=== PATIENT | female | born 2000 | race Caucasian/White ===

== ENCOUNTER 2024-10-25 23:21 | Inpatient (IN) | payer MEDICAID ==
[2024-10-25] MEDS ORDERED: HALOPERIDOL LACTATE 5 MG/ML 1 ML VIAL IM PRN (23:48)
[2024-10-25] MEDS ORDERED: MAGNESIUM HYDROXIDE 2,400 MG/30 ML CUP PO PRN (23:48)
[2024-10-26] MEDS: ACETAMINOPHEN TAB 325 MG TAB PO PRN (03:54)
[2024-10-26] MEDS: LORazepam 1 MG TAB PO PRN (03:54)
[2024-10-26 04:09] LABS: Bilirubin,Urine Negative (Negative); Blood,Urine Negative (Negative); Color,Urine Colorless; Glucose,Urine (UA) Negative (Negative); Ketones,Urine Negative (Negative); Leukocyte Esterase,Urine Negative (Negative); Nitrite,Urine Negative (Negative); PH, Urine 6.0 (5.0-8.0); Protein,Urine Negative (Negative); Specific Gravity,Urine 1.003 (1.001-1.035); Urobilinogen,Urine <2.0 mg/dL (<2.0)
[2024-10-26] MEDS: IBUPROFEN 600 MG TAB PO PRN (06:07)
--- NOTE | 2024-10-26 06:32 | P.HPIM ---
History of Present Illness H&P Date: 10/26/24 Chief Complaint: Suicidal ideation This is a 24-year-old female patient with past medical history of schizophrenia, insomnia, bipolar disorder, alcohol use disorder and polysubstance use who was admitted to the behavioral unit due to suicidal ideation. Patient reported that she intentionally took a group of medications from the street including heroin, Suboxone, methamphetamine, etc . Patient reports that she was taken by the meal attendant with reports having a seizure inside the car and she ended up bumping the back of her head . Patient complaining of head pain with reports of a small bump. She does report having alcohol withdrawal symptoms including seizure in the past. Past medical history : Schizophrenia, bipolar disorder, insomnia, alcohol use disorder, polysubstance use Past surgical history : none Social history : Daily tobacco use of 2 packs/day, patient drinks around a pint of tequila per day, frequent use of heroin and meth PE : General: nontoxic, no distress, appears at stated age Derm: warm, dry, intact Head: atraumatic, normocephalic, symmetric . small bump at the posterior scalp (right side) with tenderness upon palpation Eyes: EOMI, anicteric sclera Mouth: no lip lesion, mucus membranes moist Cardiovascular: S1 S2 reg, no murmur, rubs, or gallops Lungs: CTA bilateral, no rales, no accessory muscle use Abdominal: soft, non-tender to palpataion, no appreciable organomegaly Extremities: no gross muscle atrophy, no edema, no contractures Neuro: Alert, Oriented, CNII-XII grossly intact, gait normal Psych: well appearing, appropriate affect II: Pupils equal and reactive, no RAPD, normal visual field and fundus III, IV, : EOM intact, no gaze preference or deviation V: normal VII: no facial asymmetry VIII: normal hearing to speech Assessment and plan : - Alcohol use disorder with reports of alcohol withdrawal symptoms: Continue with CIWA protocol Ativan as needed for seizure Thiamine and folic acid daily Counseling was done -Polysubstance use including heroin and meth -Schizophrenia/bipolar disorder with suicidal ideation: Managed by behavioral unit -Scalp hematoma versus local soft tissue contusion or edema due to a minor injury : Continue to monitor for now and no need for head CT Tylenol as needed for pain If head pain symptoms are worsen, consider head CT scan without contrast Thank you for the consult Time spent : 35 min Past Medical History Past Medical History: Asthma Additional Past Medical History / Comment(s): Pt states she is "Pre-Diabetic" & has Anemia History of Any Multi-Drug Resistant Organisms: None Reported Additional Past Surgical History / Comment(s): Pt states prior Ligament repair to R Knee Past Anesthesia/Blood Transfusion Reactions: Unable to Obtain Smoking Status: Current every day smoker Past Alcohol Use History: Heavy Additional Past Alcohol Use History / Comment(s): Pt states she drinks heavily, daily BAT upon arrival less than 10 Past Drug Use History: Heroin, Marijuana Additional Drug Use History / Comment(s): Pt shates she uses Heroin intravenously - Past Family History Father Family Medical History: Diabetes Mellitus Mother Family Medical History: Cancer Medications and Allergies Allergies Allergy/AdvReac Type Severity Reaction Status Date / Time No Known Allergies Allergy Verified 10/25/24 23:47 Physical Exam Vitals: Vital Signs Temp Pulse Resp BP 10/26/24 03:25 98 F 92 16 124/72 Intake and Output 10/25/24 10/25/24 10/26/24 14:59 22:59 06:59 Other: Weight 87.5 kg Thrombosis Risk Factor Assmnt - Choose All That Apply Each Factor Represents 1 point: Obesity (BMI >25) Other Risk Factors: No Other congenital or acquired thrombophilia - If yes, enter type in comment: No Thrombosis Risk Factor Assessment Total Risk Factor Score: 1 Thrombosis Risk Factor Assessment Level: Low Risk
[2024-10-26] MEDS: FOLIC ACID 1 MG TAB PO SCH (07:59)
[2024-10-26] MEDS: NICOTINE 14MG/24HR PATCH TRANSDERM SCH (07:59)
[2024-10-26] MEDS: THIAMINE 100 MG TAB PO SCH (07:59)
[2024-10-26 08:55] LABS: Basophils # (A) 0.03 10*3/uL (0.00-0.10); Basophils % (A) 0.4 %; Eosinophils # (A) 0.09 10*3/uL (0.04-0.35); Eosinophils % (A) 1.3 %; HCT 38.2 % (37.2-46.3); HGB 12.7 g/dL (12.0-15.0); Lymphocytes # (A) 2.12 10*3/uL (0.90-5.00); Lymphocytes % (A) 29.8 %; MCH 29.8 pg (27.0-32.0); MCHC 33.2 g/dL (32.0-37.0); MCV 89.7 fL (80.0-97.0); Monocytes # (A) 0.73 10*3/uL (0.20-1.00); Monocytes % (A) 10.3 %; Neutrophils # (A) 4.12 10*3/uL (1.80-7.70); Neutrophils % (A) 57.8 %; Platelet Count 234 10*3/uL (140-440); RBC 4.26 10*6/uL (4.10-5.20); RDW 13.4 % (11.5-14.5); WBC 7.12 10*3/uL (4.50-10.00)
[2024-10-26 09:11] LABS: ALT 17 U/L (4-34); AST 21 U/L (14-36); African American GFR (CKD) >90 (>60 ml/min/1.73 sqM); Albumin 4.4 g/dL (3.5-5.0); Alkaline Phosphatase 68 U/L (38-126); Anion Gap 9 mmol/L; Blood Urea Nitrogen 11 mg/dL (7-17); Calcium 9.3 mg/dL (8.4-10.2); Carbon Dioxide 23 mmol/L (22-30); Chloride 105 mmol/L (98-107); Glucose 103 mg/dL (74-99); Non-African American GFR(CKD) >90 (>60 ml/min/1.73 sqM); Potassium 4.1 mmol/L (3.5-5.1); Sodium 137 mmol/L (137-145); Total Protein 7.1 g/dL (6.3-8.2)
[2024-10-26 09:39] LABS: Urine Alcohol Negative (Negative); Urine Barbiturate Negative (Negative)
--- NOTE | 2024-10-26 10:35 | P.HP ---
Psychiatric H&P - . H&P Date: 10/26/24 History & Physical: Allergies Allergy/AdvReac Type Severity Reaction Status Date / Time No Known Allergies Allergy Verified 10/25/24 23:47 Vital Signs Temp 97.8 F 10/26/24 09:00 Pulse 81 10/26/24 09:00 Resp 16 10/26/24 09:00 BP 110/72 10/26/24 09:00 Pulse Ox 100 10/26/24 09:00 FiO2 Intake & Output 10/25/24 10/26/24 10/26/24 18:59 06:59 18:59 Weight 87.5 kg Laboratory Last Values WBC 7.12 10*3/uL (4.50-10.00) 10/26/24 08:13 RBC 4.26 10*6/uL (4.10-5.20) 10/26/24 08:13 Hgb 12.7 g/dL (12.0-15.0) 10/26/24 08:13 Hct 38.2 % (37.2-46.3) 10/26/24 08:13 MCV 89.7 fL (80.0-97.0) 10/26/24 08:13 MCH 29.8 pg (27.0-32.0) 10/26/24 08:13 MCHC 33.2 g/dL (32.0-37.0) 10/26/24 08:13 Plt Count 234 10*3/uL (140-440) 10/26/24 08:13 MPV 10.1 fL (9.5-12.2) 10/26/24 08:13 Immature Gran % (Auto) 0.4 % 10/26/24 08:13 Neutrophils % 57.8 % 10/26/24 08:13 Lymphocytes % 29.8 % 10/26/24 08:13 Monocytes % 10.3 % 10/26/24 08:13 Eosinophils % 1.3 % 10/26/24 08:13 Basophils % 0.4 % 10/26/24 08:13 Immature Gran # 0.03 10*3/uL (0.00-0.04) 10/26/24 08:13 Neutrophils # 4.12 10*3/uL (1.80-7.70) 10/26/24 08:13 Lymphocytes # 2.12 10*3/uL (0.90-5.00) 10/26/24 08:13 Monocytes # 0.73 10*3/uL (0.20-1.00) 10/26/24 08:13 Eosinophils # 0.09 10*3/uL (0.04-0.35) 10/26/24 08:13 Basophils # 0.03 10*3/uL (0.00-0.10) 10/26/24 08:13 Sodium 137 mmol/L (137-145) 10/26/24 08:13 Potassium 4.1 mmol/L (3.5-5.1) 10/26/24 08:13 Chloride 105 mmol/L (98-107) 10/26/24 08:13 Carbon Dioxide 23 mmol/L (22-30) 10/26/24 08:13 Anion Gap 9 mmol/L 10/26/24 08:13 BUN 11 mg/dL (7-17) 10/26/24 08:13 Creatinine 0.53 mg/dL (0.52-1.04) 10/26/24 08:13 Est GFR (CKD-EPI)AfAm >90 (>60 ml/min/1.73 sqM) 10/26/24 08:13 Est GFR (CKD-EPI)NonAf >90 (>60 ml/min/1.73 sqM) 10/26/24 08:13 Glucose 103 mg/dL (74-99) H 10/26/24 08:13 Calcium 9.3 mg/dL (8.4-10.2) 10/26/24 08:13 Total Bilirubin 0.5 mg/dL (0.2-1.3) 10/26/24 08:13 AST 21 U/L (14-36) 10/26/24 08:13 ALT 17 U/L (4-34) 10/26/24 08:13 Alkaline Phosphatase 68 U/L (38-126) 10/26/24 08:13 Total Protein 7.1 g/dL (6.3-8.2) 10/26/24 08:13 Albumin 4.4 g/dL (3.5-5.0) 10/26/24 08:13 TSH 4.530 mIU/L (0.465-4.680) 10/26/24 08:13 Urine Color Colorless 10/26/24 03:30 Urine Appearance Clear (Clear) 10/26/24 03:30 Urine pH 6.0 (5.0-8.0) 10/26/24 03:30 Ur Specific [place] 1.003 (1.001-1.035) 10/26/24 03:30 Urine Protein Negative (Negative) 10/26/24 03:30 Urine Glucose (UA) Negative (Negative) 10/26/24 03:30 Urine Ketones Negative (Negative) 10/26/24 03:30 Urine Blood Negative (Negative) 10/26/24 03:30 Urine Nitrite Negative (Negative) 10/26/24 03:30 Urine Bilirubin Negative (Negative) 10/26/24 03:30 Urine Urobilinogen <2.0 mg/dL (<2.0) 10/26/24 03:30 Ur Leukocyte Esterase Negative (Negative) 10/26/24 03:30 Urine Opiates Screen Negative (Negative) 10/26/24 03:30 Urine Methadone Screen Negative (Negative) 10/26/24 03:30 Ur Propoxyphene Screen Negative (Negative) 10/26/24 03:30 Urine Barbiturates Negative (Negative) 10/26/24 03:30 Ur Phencyclidine Scrn Negative (Negative) 10/26/24 03:30 Ur Amphetamine Screen Negative (Negative) 10/26/24 03:30 U Benzodiazepines Scrn Negative (Negative) 10/26/24 03:30 Urine Cocaine Screen Negative (Negative) 10/26/24 03:30 U Cannabinoids Screen Positive (Negative) A 10/26/24 03:30 Urine Alcohol Negative (Negative) 10/26/24 03:30 U Creatinine Drug Scrn 27.8 mg/dL (>=20.0) 10/26/24 03:30 10/26/24 10:27 IDENTIFYING DATA: Patient is a 24-year-old female recently moved from [place] to [place] HPI: The patient presented to the hospital reporting suicidal thoughts with a plan and intent. The patient had noted that she had a history of schizophrenia. Most of the interview was concluded from those brief reports. The patient upon entering the room was lying in bed by stated her name she looked up and look at me and turned around and pulled the covers over her head. Again an attempt was made in order to have the patient interview however the patient did not respond. At this point it was concluded that the patient was refusing to interview and subsequent attempts were discontinued at this point. PAST PSYCHIATRIC HISTORY: Per report the patient has a history of Schizophrenia. The patient's current medication regiment is unknown. Patient's hospital history is unknown. The outpatient provider is unknown. Per reports the patient has had multiple suicide attempts in the past. PMH: as per ER note ALLERGIES: as per EMR CHEMICAL DEPENDENCY HISTORY: as per HPI Unable to obtain FAMILY PSYCHIATRIC/SUBSTANCE USE HISTORY: The patient refuses to answer questions. SOCIAL HISTORY: The patient is from [place] per report. MENTAL STATUS EXAM: General Appearance: Patient appears to be her stated age is alert, the patient was uncooperative and refused to speak.. Patient appears to have poor hygiene and grooming. Behavior: Lying in bed refusing to get up Speech: Unable to evaluate Mood/Affect: Patient reports their mood is unable to evaluate, affect is flat and constricted. Suicidality/Homicidality: Unable to evaluate Perceptions: Unable to evaluate Though content/process: Unable to evaluate Memory and concentration: Unable to evaluate Judgment and insight: Poor/Poor STRENGTHS/WEAKNESSES: Unable to evaluate INTELLECT: Unable to evaluate Diagnosis: Depression per report Schizophrenia per report Assessment: 24-year-old female presented to the emergency room voicing suicidal thoughts with a plan and intent. Currently she is refusing to interview so information is limited. Currently the patient's response and past history warrant further hospitalization for evaluation. This is currently the least restrictive level of care at this time. PLAN: -Patient is admitted under involuntary status to MHU for stabilization of psychiatric symptoms and safety. Patient has not signed adult voluntary form and medication consent and is placed in patient's chart. A second certification was completed and along with petition will be filed for court. -Medications : On hold -Ativan and Haldol PRN for agitation/aggression -Patient was informed of the risks, benefits and side effects of the medication and patient verbally consented to taking the medications. Patient signed med consent form and was placed in chart. -Internal Medicine consult to perform medical evaluation and physical. -NRT -nicotine patch -SW on board for discharge planning. Encourage patient to participate in groups to work on coping skills. Will await deferral and court date.
[2024-10-26 13:11] LABS: Cholesterol 144.00 mg/dL (0.00-200.00); HDL Cholesterol 53.80 mg/dL (40.00-60.00); LDL Cholesterol,Calculated 49.4 mg/dL (0.0-131.0); Triglycerides 204.00 mg/dL (0.00-149.00); VLDL Calculation 40.80 mg/dL (5.00-40.00)
[2024-10-26] MEDS: MAG HYDROX/AL HYDROX/SIMETH 355 ML BOTTLE PO PRN (18:15)
[2024-10-27] MEDS: OLANZapine ODT 5 MG TAB PO SCH (11:38)
--- NOTE | 2024-10-27 11:41 | P.PN ---
Progress Note - Text Progress Note Date: 10/27/24 Chief complaint: Suicidal thoughts Interval History: Patient was seen wandering the hallways and was directable and agreeable to speak with manual writer in the office. During the interview a nurse was present the entire interview. Prior to meeting the patient the patient had an outburst and punched the wall and broke a sign. The patient notes that she came to the hospital because she had thoughts of hanging herself. She notes that her sister took the rope away from her. She notes that she has had over 18 suicide attempts in her past and over 20 hospitalizations. She notes that she has dysregulated mood 365 days a year, self harms to alleviate pain, intense anger. Patient has a prior diagnosis of borderline personality disorder. Patient notes that her depression is 8/10 and her anxiety 0/10. She notes that she was not sleeping prior to coming. She notes that her energy, appetite and concentration are normal. She denies any feelings of helplessness, hopelessness or worthlessness. She denies any crying or guilt or shame. She notes today she denies any suicidal or homicidal ideations. She denies any access to guns. She denies any auditory or visual hallucinations. Substance abuse history: Cannabis-positive Coke-positive Meth-positive Opiates-positive The patient plans to go to a rehab facility in [place] that her mother is setting up. Mental Status Exam: General Appearance: The patient presented her stated age however too much make up but dressed appropriately. Behavior: The patient was agitated and guarded during the interview. Speech: Patient's speech is fluent and nonpressured. Mood/Affect: Mood is improving mildly, affect is congruent and constricted. Suicidality/Homicidality: Patient denies having any suicidal or homicidal ideation intent or plan. Perceptions: Patient denies any visual hallucinations and denies any auditory hallucinations Though content/process: There is no evidence of any delusional thought content and thought process is linear and goal-directed. Memory and concentration: AOX3, grossly intact for the purposes of this session Judgment and insight: Improving mildly Diagnosis: Borderline personality disorder Depression per report Schizophrenia per report Opiate use disorder Cannabis use disorder Cocaine use disorder Methamphetamine use disorder Assessment: The patient was willing to talk today she had an outburst because she was not getting the attention that she needed. She does fit criteria for Borderline personality disorder. Additionally she has a history of addiction. Medications will be started we will evaluate the patient's stability at this time current demonstrations of cooperation and stability warrant further hospitalization and this is the least restrictive level of care at this time. PLAN: -Patient is admitted under involuntary status to MHU for stabilization of psychiatric symptoms and safety. Patient has not signed adult voluntary form and medication consent and is placed in patient's chart. A second certification was completed and along with petition will be filed for court. -Medications : Start Zyprexa Zydis 5 mg take 1 tablet by mouth twice daily for mood -Ativan and Haldol PRN for agitation/aggression -Patient was informed of the risks, benefits and side effects of the medication and patient verbally consented to taking the medications. Patient signed med consent form and was placed in chart. -Internal Medicine consult to perform medical evaluation and physical. -NRT -nicotine patch -SW on board for discharge planning. Encourage patient to participate in groups to work on coping skills. Will await deferral and court date.
[2024-10-27] MEDS ORDERED: OLANZapine ODT 10 MG TAB PO SCH (12:00)
[2024-10-28] MEDS ORDERED: OLANZapine ODT 10 MG TAB PO SCH (09:00)
--- NOTE | 2024-10-28 10:51 | P.PN ---
Progress Note - Text Progress Note Date: 10/28/24 Chief complaint: Suicidal thoughts Interval History: The patient presented to the office and presented more calm and cooperative. It was observed in the hallway that she was tearful but she notes that the main reason for this is that she missed breakfast. She would like to be discharged tomorrow and stay with her mother until Tuesday when she will be admitted to the rehab facility. She notes that her mother is already gone through her room and thrown out all of her drugs and will be controlling the money. She notes that she is currently not suicidal or homicidal. She denies any ongoing depression or anxiety. She notes that her sleep, energy, appetite and concentration are normal. She denies any mood swings, auditory hallucinations or visual hallucinations. She notes that the Zyprexa is working well and she feels that it is a good fit. Mental Status Exam: General Appearance: The patient presented her stated age however too much make up but dressed appropriately. Behavior: The patient was agitated and guarded during the interview. Speech: Patient's speech is fluent and nonpressured. Mood/Affect: Mood is improving mildly, affect is congruent and constricted. Suicidality/Homicidality: Patient denies having any suicidal or homicidal ideation intent or plan. Perceptions: Patient denies any visual hallucinations and denies any auditory hallucinations Though content/process: There is no evidence of any delusional thought content and thought process is linear and goal-directed. Memory and concentration: AOX3, grossly intact for the purposes of this session Judgment and insight: Improving mildly Diagnosis: Borderline personality disorder Depression per report Schizophrenia per report Opiate use disorder Cannabis use disorder Cocaine use disorder Methamphetamine use disorder Assessment: Once on the antipsychotics it appears that the patient's mood is stabilizing and it is also felt that the patient will be appropriate for discharge tomorrow. PLAN: -Patient is admitted under involuntary status to MHU for stabilization of psychiatric symptoms and safety. Patient has not signed adult voluntary form and medication consent and is placed in patient's chart. A second certification was completed and along with petition will be filed for court. -Medications : Continue Zyprexa Zydis 5 mg take 1 tablet by mouth twice daily for mood -Ativan and Haldol PRN for agitation/aggression -Patient was informed of the risks, benefits and side effects of the medication and patient verbally consented to taking the medications. Patient signed med consent form and was placed in chart. -Internal Medicine consult to perform medical evaluation and physical. -NRT -nicotine patch -SW on board for discharge planning. Encourage patient to participate in groups to work on coping skills. Will await deferral and court date.
[2024-10-29 08:30] VITALS: BP 124/69; PULSE 101; RESP 18; TEMP 97.6
--- NOTE | 2024-10-29 10:18 | P.DS ---
Providers Date of admission: 10/26/24 03:24 Admission HPI: Admission note was completed by Dr. Rodriguez "The patient presented to the hospital reporting suicidal thoughts with a plan and intent. The patient had noted that she had a history of schizophrenia. Most of the interview was concluded from those brief reports. The patient upon entering the room was lying in bed by stated her name she looked up and look at me and turned around and pulled the covers over her head. Again an attempt was made in order to have the patient interview however the patient did not respond. At this point it was concluded that the patient was refusing to interview and subsequent attempts were discontinued at this point." Hospital course: Upon admission to the unit patient was directable and agreeable to commence treatment and signed adult voluntary form admitted involuntarily on a petition and certificate and a second certificate was completed and faxed to the courts. Patient ended up signing a deferral with the county attorney and agreeing to treatment. Initially upon admission the patient was very resistant and labile. At one point she punched the wall and broke a sign. Patient got along well with other patients on the unit and followed unit protocol. Patient was compliant with the medications and denied any side effects throughout hospital course. Patient was started on Zyprexa Zydis. Patient spoke of her stressors and engaged in therapy both group and individual. Patient was also seen by medical team for history and physical exam. Throughout the course of the hospitalization patient gradually improved with regards to mood, anxiety, sleep and returned back to their baseline level of functioning became more future oriented with improved insight and judgment. On the day of discharge patient denied any suicidal or homicidal ideations intent or plan denied any auditory or visual hallucinations. Patient endorsed wanting to live for their health and family. The patient denied any access to guns or weapons. Patient denied any paranoia and did not endorse any delusions. Patient does have a significant history of substance abuse and was counseled on abstaining from all substances including alcohol and marijuana. Patient ended up agreeing to inpatient subtance rehab. Patient was also counseled on the medications and need for regular compliance and was encouraged to follow-up with their outpatient appointment for mental health and also for primary care. Prior to discharge a family meeting will be arranged by marriage and family social worker to answer any questions and ensure safety upon discharge incuding making sure that guns/weapons are either removed from the home or locked away. We talked to the patient's mother on conference call [place] [phone]. She expressed no hesitation about the patient coming home and feels that she is safe. She plans to have the patient admitted to a substance abuse facility on Tuesday. Day of discharge patient denied any suicidal or homicidal ideations. She denied any mood swings or racing thoughts. She denied any depression or anxiety. She notes that her sleep, energy and appetite are normal. She denies any problems with concentration. She was able to voice a safety plan including 911 and [phone]. Mental status exam: General Appearance: Patient appears to be her stated age is alert, pleasant, and cooperative. Patient is in no acute distress and has improved hygiene and grooming Behavior: Patient is calmly seated without any agitated behavior. Speech: Patient's speech is fluent and nonpressured. Mood/Affect: Patient reports their mood is "better good", affect is congruent and euthymic. Suicidality/Homicidality: Patient denies having any suicidal or homicidal ideation intent or plan. Perceptions: Patient denies any auditory or visual hallucinations. Though content/process: There is no evidence of any delusional thought content and thought process is linear and goal-directed. More future oriented Memory and concentration: AOX3, grossly intact for the purposes of this session. Can spell "WORLD" backwards correctly. Judgment and insight: Chronically poor, however has improved with guarded prognosis Diagnosis: Borderline personality disorder Depression per report Schizophrenia per report Opiate use disorder Cannabis use disorder Cocaine use disorder Methamphetamine use disorder Plan: -Continue with discharge today as patient has improved and stabilized psychiatrically and is not currently an imminent threat to themself and/or others. Patient will remain at chronically elevated risk for harm to self and/or others due to their impulsivity and substance abuse. -Continue medications: Zyprexa Zydis 5 mg take 1 tablet by mouth twice daily for mood -Patient was counseled on the need for medication compliance and appropriate follow-up at mental health and also primary care for medical issues. Patient verbalized understanding and agreed. -Social work to help coordinate patients discharge today arrange for and conduct family meeting to ensure safety upon discharge and answer any questions/concerns. also to ensure safe home environment that guns/weapons are either removed from the home or locked away. Social work also to arrange for patients follow up appointments with [facility] for psychiatric care along with follow up with primary care provider. -Patient counseled on abstaining from recreational drugs and marijuana and alcohol. Was informed/educated on the adverse effects on their physical and mental health. Patient verbally agreed and understood. -Patient was instructed to return to the hospital or seek immediate medical care if their psychiatric or medical symptoms do worsen or reoccur. Expected date of discharge: 10/29/24 Attending physician: Tatiana Rea MD Consults: 10/25/24 23:48 Consult Physician Routine Consulting Provider: [facility] Consult Reason/Comments: History and Physical, New Admission Do you want consulting provider notified?: Yes Primary care physician: Stated None - Discharge Diagnosis(es) (1) Borderline personality disorder Current Visit: Yes Status: Chronic Priority: Medium (2) Schizoaffective disorder Current Visit: Yes Status: Chronic Priority: Medium Plan - Discharge Summary Discharge Rx Participant: No Patient Instructions/Handouts: Depression (DC), Schizophrenia (DC), Polysubsta nce Abuse (ED), Borderline Personality Disorder (DC) Activity/Diet/Wound Care/Special Instructions: [facility] Discharge Info Avoid the use of street drugs and alcohol. Take all medications as prescribed. When you are in need of refills on your medications, please contact your outpatient medical provider and/or outpatient psychiatrist. Please go to your scheduled outpatient appointments for aftercare treatment. If symptoms return or become worse, call the crisis line at or and/or visit the nearest emergency room for assistance. National Suicide and Crisis Lifeline - call or text 409.
== END 2024-10-29 14:23 | disposition home or self-care (01) | DRG 752 ==
LOC: 3MHU 10-26 03:24
PROVIDERS: ADMIT Psychiatry & Neurology Psychiatry; ATTEND Psychiatry & Neurology Psychiatry
DX: F60.3 Borderline personality disorder (principal); F10.139 Alcohol abuse with withdrawal, unspecified; F11.90 Opioid use, unspecified, uncomplicated; F12.90 Cannabis use, unspecified, uncomplicated; F14.90 Cocaine use, unspecified, uncomplicated; F15.90 Other stimulant use, unspecified, uncomplicated; F17.200 Nicotine dependence, unspecified, uncomplicated; F25.9 Schizoaffective disorder, unspecified; F31.9 Bipolar disorder, unspecified; F41.9 Anxiety disorder, unspecified; J45.909 Unspecified asthma, uncomplicated; R45.851 Suicidal ideations; R56.9 Unspecified convulsions; Z91.51 Personal history of suicidal behavior
CPT/HCPCS: 80053; 80061; 80306; 81003; 83036; 84443; 85025